=== PATIENT | male | born 1975 | race Two or more races ===

== ENCOUNTER 2022-09-25 20:31 | Emergency (ER) | payer SELFPAY ==
[2022-09-25] MEDS ORDERED: Proparacaine 0.5% Ophth Soln 15 ML Bottle EYERT ONE (20:45)
[2022-09-25] MEDS ORDERED: Proparacaine 0.5% Ophth Soln 15 ML Bottle ONE (20:47)
[2022-09-25] MEDS ORDERED: Fluorescein 1 MG Ophth Strip ONE (20:48)
[2022-09-25] MEDS ORDERED: Erythromycin Base 0.5% Ophth Oint 1 GM Tube EYEBOTH ONE ×2 (22:41→22:42)
[2022-09-25] MEDS: Ketorolac 0.5% Ophth Soln 5 ML Bottle ONE ×2 (22:50)
[2022-09-26] MEDS ORDERED: Ketorolac 0.5% Ophth Soln 5 ML Bottle EYERT SCH (09:00)
== END 2022-09-25 22:55 | disposition home or self-care (01) ==
LOC: JD.ED 20:31
DX: T15.01XA Foreign body in cornea, right eye, initial encounter (principal)
CPT/HCPCS: 65222; 99283; A9270; J3490

== ENCOUNTER 2023-12-24 22:03 | Emergency (ER) | payer SELFPAY ==
[2023-12-24] MEDS: HYDROmorphone 1 MG/ML Syringe IVPUSH ONE (22:43)
[2023-12-24] MEDS: Sodium Chloride 0.9% 1,000 ML IV ONE (22:43)
[2023-12-24] MEDS: Sodium Chloride 0.9% 10 ML Syringe FLUSH PRN (22:43)
[2023-12-24 22:56] LABS: BASOPHILS PERCENT AUTO 0.5 % (0.0-1.0); EOSINOPHILS ABSOLUTE AUTO 0.2 K/mm3 (0.0-0.4); EOSINOPHILS PERCENT AUTO 2.6 % (0.0-6.0); HEMOGLOBIN 16.8 gm/dl (14.0-18.0); IMMATURE GRAN ABSOLUTE AUTO 0.03 K/mm3 (0.00-0.05); IMMATURE GRAN PERCENT AUTO 0.3 % (0.0-0.4); LYMPHOCYTES ABSOLUTE AUTO 3.1 K/mm3 (1.0-4.8); LYMPHOCYTES PERCENT AUTO 35.4 % (24.0-44.0); MEAN CORPUSCULAR HEMOGLOBIN 28.9 pg (28.0-32.0); MEAN CORPUSCULAR VOLUME 82.5 fl (83.0-99.0); MEAN PLATELET VOLUME 9.5 fl (9.4-12.4); MONOCYTES ABSOLUTE AUTO 0.8 K/mm3 (0.0-0.8); MONOCYTES PERCENT AUTO 8.8 % (0.0-8.0); NEUTROPHILS ABSOLUTE AUTO 4.6 K/mm3 (1.8-7.7); NEUTROPHILS PERCENT AUTO 52.4 % (41.0-71.0); PLATELET COUNT,PLT 221 K/mm3 (150-400); RED BLOOD CELL COUNT 5.82 M/mm3 (4.52-5.90); WHITE BLOOD CELL COUNT,WBC 8.68 K/mm3 (3.9-11.3)
[2023-12-24] MEDS: Iopamidol 612 MG/ML 100 ML Bottle IVPUSH ONE (23:06)
[2023-12-24 23:17] LABS: A/G RATIO 1.2 (1-2); ALBUMIN 3.8 g/dl (3.4-5.0); ANION GAP 14.5 (5-15); BILIRUBIN TOTAL 0.4 mg/dL (0.2-1.0); BUN/CREATININE RATIO 14.5 (14-18); CALCIUM 9.3 mg/dL (8.5-10.1); CREATININE 1.1 mg/dL (0.7-1.3); EST CRCL DRUG DOSING (CG) 94.38 mL/min; POTASSIUM,K 3.5 mEq/L (3.5-5.1); PROTEIN TOTAL,TP 7.1 g/dl (6.4-8.2)
[2023-12-25 00:22] LABS: APPEARANCE,URINE SLT CLOUDY (Clear); BILIRUBIN,URINE NEGATIVE (Negative); COLOR,URINE LIGHT YELLOW (Yellow); GLUCOSE,URINE NEGATIVE (Negative); KETONES,URINE NEGATIVE (Negative); LEUKOCYTE ESTERASE,URINE NEGATIVE (Negative); NITRITE,URINE NEGATIVE (Negative); OCCULT BLOOD,URINE NEGATIVE (Negative); PH,URINE 7.5 (5.0-8.0); PROTEIN,URINE NEGATIVE (Negative); UROBILINOGEN,URINE 0.2 (0.2-1.0)
== END 2023-12-25 03:11 | disposition home or self-care (01) ==
LOC: JD.ED 22:03
DX: M54.50 Low back pain, unspecified (principal)
CPT/HCPCS: 36415; 71260; 74177; 80053; 81003; 83690; 85025; 96374; 99284; J1170; J3490; J7030; Q9967